=== PATIENT | female | born 1990 | race Caucasian/White ===

== ENCOUNTER 2016-07-05 13:00 | Observation (INO) | payer MEDICAID, OTHER ==
[2016-07-05 13:10] VITALS: BMI 33.3
--- NOTE | 2016-07-05 14:02 | ED PDOC ---
Arrival/HPI - General Chief Complaint: Chest Pain Time Seen by Provider: 07/05/16 13:10 Historian: Patient - History of Present Illness Narrative History of Present Illness (Text): 07/05/16 13:51 A 25 year old female, whose past medical history includes hypertension, hyperlipidemia and angina, presents to the emergency department complaining of midsternal chest pain since this morning. Patient describes her pain as a sharp sensation and denies any radiation. Patient states her pain is similar in quality to previous angina exacerbation. Patient notes nausea and an episode of non-bilious non-bloody vomiting but denies any trauma, fever, chills, diarrhea, abdominal pain, shortness of breath, cough or any other complaints. PMD: Dr. Aparicio Time/Duration: Other (This morning) Symptom Course: Unchanged Quality: Other Context: Other Past Medical History - Provider Review Nursing Documentation Reviewed: Yes - Cardiac Hx Cardiac Disorders: Yes Hx Angina: Yes Hx SD: Yes Hx Hypertension: Yes - Pulmonary Hx Respiratory Disorders: Yes Hx Bronchitis: Yes - Neurological Hx Neurological Disorder: No - HEENT Hx HEENT Disorder: No - Renal Hx Renal Disorder: No - Endocrine/Metabolic Hx Endocrine Disorders: No - Hematological/Oncological Hx Blood Disorders: No - Integumentary Hx Dermatological Disorder: No - Musculoskeletal/Rheumatological Hx Musculoskeletal Disorders: No Hx Falls: No - Gastrointestinal Hx Gastrointestinal Disorders: No - Genitourinary/Gynecological Hx Genitourinary Disorders: No - Psychiatric Hx Anxiety: Yes Hx Substance Use: No - Surgical History Hx Cardiac Catheterization: Yes Hx Section: Yes (x3 2009 2011 2013) - Anesthesia Hx Anesthesia: Yes Hx Anesthesia Reactions: No Hx Malignant Hyperthermia: No - Suicidal Assessment Feels Threatened In Home Enviroment: No Family/Social History - Physician Review Nursing Documentation Reviewed: Yes Family/Social History: No Known Family HX. denies: CAD/SD Smoking Status: Current Some Days Smoker Hx Alcohol Use: No Hx Substance Use: No Allergies/Home Meds Allergies/Adverse Reactions: Allergies No Known Allergies Allergy (Verified 07/05/16 13:35) Home Medications: Home Meds Medication Instructions Recorded Confirmed Labetalol [Trandate] 100 mg PO BID 11/05/13 07/05/16 Zolpidem Tartrate [Ambien] 1 tab PO HS 02/10/15 07/05/16 Duloxetine HCl [Duloxetine HCl] 30 mg PO DAILY 07/05/16 07/05/16 Lisinopril [Zestril] 20 mg PO DAILY 07/05/16 07/05/16 amLODIPine [Norvasc] 10 mg PO DAILY 07/05/16 07/05/16 Review of Systems - Physician Review All systems were reviewed & negative as marked: Yes - Review of Systems Constitutional: absent: Fevers, Night Sweats Respiratory: absent: SOB, Cough Cardiovascular: Chest Pain Gastrointestinal: Nausea, Vomiting. absent: Abdominal Pain, Diarrhea Physical Exam Vital Signs Reviewed: Yes Vital Signs Temp Pulse Resp BP Pulse Ox 07/05/16 13:10 98.1 F 70 18 148/88 100 Temperature: Afebrile Blood Pressure: Normal Pulse: Regular Respiratory Rate: Normal Appearance: Positive for: Well-Appearing, Non-Toxic, Comfortable Pain Distress: None Mental Status: Positive for: Alert and Oriented X 3 - Systems Exam Head: Present: Atraumatic, Normocephalic Pupils: Present: PERRL Extroacular Muscles: Present: EOMI Conjunctiva: Present: Normal Mouth: Present: Moist Mucous Membranes Neck: Present: Normal Range of Motion Respiratory/Chest: Present: Clear to Auscultation, Good Air Exchange. No: Respiratory Distress, Accessory Muscle Use Cardiovascular: Present: Regular Rate and Rhythm, Normal S1, S2. No: Murmurs Abdomen: Present: Normal Bowel Sounds. No: Tenderness, Distention, Peritoneal Signs Back: Present: Normal Inspection Upper Extremity: Present: Normal Inspection. No: Cyanosis, Edema Lower Extremity: Present: Normal Inspection. No: Edema Neurological: Present: GCS=15, CN II-XII Intact, Speech Normal Skin: Present: Warm, Dry, Normal Color. No: Rashes Psychiatric: Present: Alert, Oriented x 3, Normal Insight, Normal Concentration Medical Decision Making ED Course and Treatment: 07/05/16 13:51 Impression: A 25 year old female with midsternal chest pain similar to previous angina exacerbations. Patient notes nausea and an episode of non-bilious non-bloody vomiting but denies any other complaints. Differential Diagnosis included but are not limited to: Chest pain rule out Unstable angina vs. Costochondritis Plan: -- Chest xray -- EKG -- Labs -- Aspirin and Nitroglycerin -- Reassess and disposition Progress Notes: EKG shows NSR at [address]-segment elevations, normal intervals. Interpreted by me. 07/05/16 15:08 Nitro SL did not resolve pain. Will give second. Discussed case with Dr. Fisher who will place on telemetry observatoin. - Lab Interpretations Lab Results: 07/05/16 14:19 07/05/16 14:19 Lab Results 07/05/16 14:19: WBC 5.4, RBC 4.21, Hgb 11.1 L, Hct 33.9 L, MCV 80.5, MCH 26.4, MCHC 32.7, RDW 14.5, Plt Count 229, MPV 11.0, Gran % 50.0, Lymph % (Auto) 39.4 H , Blount % (Auto) 7.6 H, Eos % (Auto) 2.6, Baso % (Auto) 0.4, Gran # 2.70, Lymph # 2.1, Blount # 0.4, Eos # 0.1, Baso # 0.02, PT 10.4, INR 0.96, APTT 26.3, Sodium 136, Potassium 4.2, Chloride 100, Carbon Dioxide 27, Anion Gap 13, BUN 10, Creatinine 0.7, Est GFR ( Amer) > 60, Est GFR (Non-Af Amer) > 60, Random Glucose 93, Calcium 9.7, Magnesium 1.8, Total Bilirubin 0.4, AST 37, ALT 19, Alkaline Phosphatase 44, Lactate Dehydrogenase 428, Total Creatine Kinase 215, Troponin I < 0.01, Total Protein 7.8, Albumin 4.2, Globulin 3.5, Albumin/ Globulin Ratio 1.2 I have reviewed the lab results: Yes Interpretation: All labs normal - RAD Interpretation Radiology Orders: 07/05/16 13:50 CHEST PORTABLE [RAD] Stat CXR nl. Surveillance Investigator: ED Physician - Medication Orders Current Medication Orders: Discontinued Medications Aspirin (Ecotrin) 162 mg PO STAT STA Stop: 07/05/16 13:51 Last Admin: 07/05/16 14:10 Dose: 162 MG Nitroglycerin (Nitrostat Sl Tab) 0.4 mg SL STAT STA Stop: 07/05/16 13:51 Last Admin: 07/05/16 14:13 Dose: 0.4 MG - Scribe Statement The provider has reviewed the documentation as recorded by the Zeeshan Bullard Provider Scribe Attestation: All medical record entries made by the Zeeshan were at my direction and personally dictated by me. I have reviewed the chart and agree that the record accurately reflects my personal performance of the history, physical exam, medical decision making, and the department course for this patient. I have also personally directed, reviewed, and agree with the discharge instructions and disposition. Disposition/Present on Arrival - Present on Arrival Any Indicators Present on Arrival: No History of DVT/PE: No History of Uncontrolled Diabetes: No Urinary Catheter: No History of Decub. Ulcer: No History Surgical Site Infection Following: None - Disposition Have Diagnosis and Disposition been Completed?: Yes Diagnosis: Chest pain Disposition: HOSPITALIZED Disposition Time: 15:09 Patient Plan: Observation Condition: FAIR Discharge Instructions (ExitCare): Chest Pain (ED)
[2016-07-05 14:21] LABS: ADD MANUAL DIFF? NO
[2016-07-05 14:26] LABS: BASO # 0.02 K/mm3 (0.0-2.0); BASO % 0.4 % (0.0-3.0); EOS # 0.1 (0.0-0.7); EOS % 2.6 % (1.5-5.0); HEMATOCRIT 33.9 % (36.0-48.0); LYMPH # 2.1 (1.2-3.4); LYMPH % 39.4 % (22.0-35.0); MEAN CELL VOLUME 80.5 fL (80.0-105.0); MEAN CORPUSCULAR HEMOGLOBIN 26.4 pg (25.0-35.0); MEAN CORPUSCULAR HGB CONC 32.7 g/dl (31.0-37.0); MONO # 0.4 (0.1-0.6); MONO % 7.6 % (1.0-6.0); PLATELET COUNT 229 10^3/uL (120.0-450.0); RED CELL DISTRIBUTION WIDTH 14.5 % (11.5-14.5); WHITE BLOOD COUNT 5.4 10^3/ul (4.5-11.0)
[2016-07-05 14:33] LABS: ALB/GLOB RATIO 1.2 (1.1-1.8); ALKALINE PHOSPHATASE 44 U/L (38-133); ALT/SGPT 19 U/L (7-56); AST/SGOT 37 U/L (15-39); BILIRUBIN,TOTAL 0.4 mg/dL (0.2-1.3); BLOOD UREA NITROGEN 10 mg/dL (7-21); CALCIUM 9.7 mg/dL (8.4-10.5); CARBON DIOXIDE 27 mmol/L (21-33); CHLORIDE 100 mmol/L (98-107); GFR AFRICAN-AMERICAN > 60; GLUCOSE,RANDOM 93 mg/dL (70-110); MAGNESIUM 1.8 mg/dL (1.7-2.2); POTASSIUM 4.2 mmol/L (3.6-5.0); SODIUM 136 mmol/L (132-148); TOTAL PROTEIN 7.8 g/dL (5.8-8.3)
[2016-07-05 14:40] LABS: INR 0.96 (0.93-1.08); PARTIAL THROMBOPLASTIN TIME 26.3 Seconds (23.7-30.8)
[2016-07-05 14:45] LABS: TROPONIN I < 0.01 ng/mL
--- NOTE | 2016-07-05 16:32 | RAD ---
HISTORY: Chest pain. Technique: Single view portable semi erect @ 14:35. COMPARISON: No prior. FINDINGS: LUNGS: No active pulmonary disease. PLEURA: No significant pleural effusion identified, no pneumothorax apparent. CARDIOVASCULAR: Normal. OSSEOUS STRUCTURES: No significant abnormalities. VISUALIZED UPPER ABDOMEN: Normal. OTHER FINDINGS: None. IMPRESSION: No active disease.
--- NOTE | 2016-07-05 16:33 | CP.PCM.HP ---
<Zen Franco - Last Filed: 07/05/16 16:49> History of Present Illness - History of Present Illness History of Present Illness: CC: chest pain HPI: 25 year old female with past medical history of hypertension, depression, and anxiety presents to [facility] ED with chest pain. Patient reports the chest pain is located at midsternal region, it started this morning suddenly. She describes the pain as sharp in quality, it comes and goes , radiates to her jaw. The pain is worse with deep breath and movement. Patient had multiple episodes just like this before, with last one happened about 1 month ago. Patient went [facility] and stated that all the testings were negative. Patient never had a cardiac cath procedure done before. Patient also reports of having 6 episodes of non-bilious non-bloody vomiting. She denies having loss of consciousness, chills, fever, chills, shortness of breath, cough, abdominal pain , diarrhea, or urinary symptoms. PMD: Dr. Aparicio PMHx: hypertension, depression, anxiety PSHx: x3 Allergy: NKDA Social Hx: 1-2 cigarettes daily, social alcohol consumption, denies other drug use Family Hx: none Home Med: norvasc, ambien, lisinopril, duloxetine, asa Present on Admission - Present on Admission Any Indicators Present on Admission: No Review of Systems - Review of Systems All systems: reviewed and no additional remarkable complaints except - Constitutional Constitutional: As Per HPI. absent: Chills, Fever, Weakness - EENT Eyes: As Per HPI. absent: Blurred Vision, Change in Vision, Loss of Vision Ears: As Per HPI. absent: Disequilibrium, Dizziness Nose/Mouth/Throat: As Per HPI. absent: Nasal Discharge, Hoarsness - Cardiovascular Cardiovascular: As Per HPI, Chest Pain, Chest Pain with Activity, Pain Radiating to Arm/Neck/Jaw, Radiating Pain. absent: Edema, Leg Edema - Respiratory Respiratory: As Per HPI. absent: Cough, Dyspnea, Hemoptysis, Wheezing - Gastrointestinal Gastrointestinal: As Per HPI, Nausea, Vomiting. absent: Diarrhea - Genitourinary Genitourinary: As Per HPI. absent: Urinary Incontinence, Urinary Frequency, Urinary Hesitance - Musculoskeletal Musculoskeletal: As Per HPI - Integumentary Integumentary: As Per HPI - Neurological Neurological: As Per HPI. absent: Abnormal Speech, Confusion, Dizziness, Numbness, Syncope - Psychiatric Psychiatric: As Per HPI. absent: Anxiety, Confusion, Visual Hallucinations, Tactile Hallucinations Past Patient History - Past Medical History & Family History Past Medical History?: Yes - Past Social History Smoking Status: Current Some Days Smoker - CARDIAC Hx Cardiac Disorders: Yes Hx Angina: Yes Hx Heart Attack: Yes Hx Hypertension: Yes - PULMONARY Hx Respiratory Disorders: Yes Hx Bronchitis: Yes - NEUROLOGICAL Hx Neurological Disorder: No - HEENT Hx HEENT Problems: No - RENAL Hx Chronic Kidney Disease: No - ENDOCRINE/METABOLIC Hx Endocrine Disorders: No - HEMATOLOGICAL/ONCOLOGICAL Hx Blood Disorders: No - INTEGUMENTARY Hx Dermatological Problems: No - MUSCULOSKELETAL/RHEUMATOLOGICAL Hx Musculoskeletal Disorders: No Hx Falls: No - GASTROINTESTINAL Hx Gastrointestinal Disorders: No - GENITOURINARY/GYNECOLOGICAL Hx Genitourinary Disorders: No - PSYCHIATRIC Hx Anxiety: Yes Hx Substance Use: No - SURGICAL HISTORY Hx Cardiac Catheterization: Yes Hx Section: Yes (x3 2009 2011 2013) - ANESTHESIA Hx Anesthesia: Yes Hx Anesthesia Reactions: No Hx Malignant Hyperthermia: No Meds Allergies/Adverse Reactions: Allergies Allergy/AdvReac Type Severity Reaction Status Date / Time No Known Allergies Allergy Verified 07/05/16 13:35 Physical Exam - Constitutional Appears: Non-toxic - Head Exam Head Exam: ATRAUMATIC, NORMOCEPHALIC - Eye Exam Eye Exam: PERRL - ENT Exam ENT Exam: Mucous Membranes Moist - Neck Exam Neck exam: Positive for: Normal Inspection - Respiratory Exam Respiratory Exam: Clear to Auscultation Bilateral, NORMAL BREATHING PATTERN. absent: Rhonchi, Wheezes, Respiratory Distress - Cardiovascular Exam Cardiovascular Exam: REGULAR RHYTHM, RRR, +S1, +S2 - GI/Abdominal Exam GI & Abdominal Exam: Normal Bowel Sounds, Soft. absent: Distended, Guarding, Tenderness - Extremities Exam Extremities exam: Positive for: normal capillary refill, normal inspection, pedal pulses present. Negative for: joint swelling, pedal edema, tenderness - Back Exam Back exam: NORMAL INSPECTION - Neurological Exam Neurological exam: Alert, Oriented x3 - Psychiatric Exam Psychiatric exam: Normal Affect, Normal Mood - Skin Skin Exam: Dry, Warm Additional comments: multiple keyloid scars on left forearm Results - Vital Signs Recent Vital Signs: Last Vital Signs Temp 98.1 F 07/05/16 13:10 Pulse 64 07/05/16 15:01 Resp 18 07/05/16 15:01 BP 154/86 H 07/05/16 15:01 Pulse Ox 100 07/05/16 15:01 - Labs Result Diagrams: 07/05/16 14:19 07/05/16 14:19 Labs: Laboratory Results - last 24 hr 07/05/16 14:19 WBC 5.4 RBC 4.21 Hgb 11.1 L Hct 33.9 L MCV 80.5 MCH 26.4 MCHC 32.7 RDW 14.5 Plt Count 229 MPV 11.0 Gran % 50.0 Lymph % (Auto) 39.4 H Toombs % (Auto) 7.6 H Eos % (Auto) 2.6 Baso % (Auto) 0.4 Gran # 2.70 Lymph # 2.1 Toombs # 0.4 Eos # 0.1 Baso # 0.02 PT 10.4 INR 0.96 APTT 26.3 Sodium 136 Potassium 4.2 Chloride 100 Carbon Dioxide 27 Anion Gap 13 BUN 10 Creatinine 0.7 Est GFR ( Amer) > 60 Est GFR (Non-Af Amer) > 60 Random Glucose 93 Calcium 9.7 Magnesium 1.8 Total Bilirubin 0.4 AST 37 ALT 19 Alkaline Phosphatase 44 Lactate Dehydrogenase 428 Total Creatine Kinase 215 Troponin I < 0.01 Total Protein 7.8 Albumin 4.2 Globulin 3.5 Albumin/Globulin Ratio 1.2 Assessment & Plan - Assessment and Plan (Free Text) Assessment: Chest pain r/o ACS -EKG showed NSR at [address]-segment elevations -Troponin negative x1, repeats pending -Cardiology consult, Dr. Morales help appreciated -Lipid panel pending -ASA 81mg po -Lipitor 10mg po -Toradol 30mg IV Q6 prn Tobacco abuse -Cessation consulted -Nicotine patch Hypertension -Resume Norvasc 10mg po daily -Resume Lisinopril 20mg po daily Nausea and vomiting -Zofran 4mg iv Q4 prn Prophylactic measures -Protonix for GI ppx -SCD for DVT ppx <Natalia GREGORY,Aurelia - Last Filed: 07/05/16 17:21> Results - Vital Signs Recent Vital Signs: Last Vital Signs Temp 98.1 F 07/05/16 13:10 Pulse 61 07/05/16 17:00 Resp 18 07/05/16 17:00 BP 150/76 07/05/16 17:00 Pulse Ox 100 07/05/16 17:00 - Labs Result Diagrams: 07/05/16 14:19 07/05/16 14:19 Attending/Attestation - Attestation I have personally seen and examined this patient.: Yes I have fully participated in the care of the patient.: Yes I have reviewed all pertinent clinical information: Yes Notes (Text): Patient was seen and examined with medical unit secretary .Agreed with resident assessment and plan. 25 Yrs old female with PMH of Obesity,HTN,Anxiety is admitted with chest pain, atypical in nature, has chest wall tenderness,EKG NSR, no ischemic changes, patient is on room air , not dyspnic, will monitor in tele for observation, will get serial troponin. Management plan was discussed in detail with patient Education was provided.
--- NOTE | 2016-07-05 18:14 | CARD ---
APPROVED REPORT EKG Measurement Heart [id number] NM [id number] <Conclusion> Normal sinus rhythm Normal ECG
[2016-07-05 19:20] LABS: CHOLESTEROL 172 mg/dL (130-200)
[2016-07-05 22:20] LABS: TROPONIN I < 0.01 ng/mL
[2016-07-06 03:19] VITALS: RESP 20
[2016-07-06] MEDS ORDERED: Pantoprazole 40 mg EC Tab PO SCH (06:30)
[2016-07-06 07:39] LABS: ADD MANUAL DIFF? NO
[2016-07-06 07:47] LABS: BASO # 0.02 K/mm3 (0.0-2.0); BASO % 0.5 % (0.0-3.0); EOS # 0.1 (0.0-0.7); EOS % 3.4 % (1.5-5.0); GRAN # 1.95 (1.4-6.5); LYMPH # 1.6 (1.2-3.4); LYMPH % 38.7 % (22.0-35.0); MEAN CELL VOLUME 80.2 fL (80.0-105.0); MEAN CORPUSCULAR HEMOGLOBIN 25.9 pg (25.0-35.0); MEAN CORPUSCULAR HGB CONC 32.4 g/dl (31.0-37.0); MEAN PLATELET VOLUME 11.2 fl (7.0-11.0); MONO # 0.4 (0.1-0.6); MONO % 9.4 % (1.0-6.0); PLATELET COUNT 227 10^3/uL (120.0-450.0); RED CELL DISTRIBUTION WIDTH 14.8 % (11.5-14.5); WHITE BLOOD COUNT 4.1 10^3/ul (4.5-11.0)
[2016-07-06 08:14] LABS: BLOOD UREA NITROGEN 11 mg/dL (7-21); CALCIUM 9.2 mg/dL (8.4-10.5); CARBON DIOXIDE 25 mmol/L (21-33); CHLORIDE 102 mmol/L (98-107); GFR AFRICAN-AMERICAN > 60; GLUCOSE,RANDOM 87 mg/dL (70-110); POTASSIUM 4.3 mmol/L (3.6-5.0); SODIUM 137 mmol/L (132-148)
[2016-07-06 08:17] LABS: TROPONIN I < 0.01 ng/mL
[2016-07-06 08:32] VITALS: BP 126/78; PULSE 68; TEMP 98; O2SAT 98
--- NOTE | 2016-07-06 10:38 | CON ---
DATE: 07/06/2016 HISTORY: The patient is a 25-year-old woman who presents with focal chest discomfort, which is exace rbated by deep inspiration as well as movement of the upper chest. The patient has had this chronic pain for a long time. She is followed by her mold inspector, Dr. Meza , at [facility]. The patient states she underwent a stress test 1-2 months ago for s imilar symptoms with Dr. Meza and it was found to be unremarkable. PAST MEDICAL HISTORY: The patient's cardiac risk factors include hypertension and history of smoking . No previous myocardial infarction was noted. SOCIAL HISTORY: The patient is an active smoker and works locally in [place]. REVIEW OF SYSTEMS: A 14-point review of systems was reviewed. She complains of fatigue as well as t his chronic focal chest pain. PHYSICAL EXAMINATION: VITAL SIGNS: Blood pressure is 126/78, heart rate in the 60s, normal sinus rhythm. NECK: Negative JVD. LUNGS: Without rales. HEART: Revealed S1, S2. EXTREMITIES: Without edema. CHEST: Palpation of her sternum reproduced the symptoms in the chest in the parasternal area. EKG is unremarkable. LABORATORIES: Reveal troponins that are negative x 3. The hemoglobin is 11. IMPRESSION: 1. Atypical chest pain. 2. No evidence for acute coronary syndrome. 3. Chronic chest wall pain exacerbated by increased inspiration. 4. Hypertension. 5. Questionable chronic obstructive pulmonary disease with a history of smoking 6. Anemia. PLAN: Given these findings, I have discussed with the patient about the need to stop smoking. I have advised her to follow up with Dr. Meza, her primary mold inspector, who has been evaluating her for this chronic chest pain. We will set the patient up given her an alternative to undergo a repeat nuclear stress test to rule out coronary artery disease. Darryn Morales MD cc: [phone] TT: 07/06/2016 10:37:17 Confirmation # [id number] Dictation # [id number]
--- NOTE | 2016-07-06 11:58 | CP.PCM.DIS ---
Provider - Provider Date of Admission: 07/05/16 15:05 Attending physician: Aurelia Fisher MD Primary care physician: Tru Aparicio Consults: Cardiology: Dr. Morales Time Spent in preparation of Discharge (in minutes): 40 Hospital Course - Lab Results Lab Results: Most Recent Lab Values WBC 4.1 10^3/ul (4.5-11.0) L D 07/06/16 07:00 RBC 4.24 10^6/uL (3.5-6.1) 07/06/16 07:00 Hgb 11.0 gm/dL (12.0-16.0) L 07/06/16 07:00 Hct 34.0 % (36.0-48.0) L 07/06/16 07:00 MCV 80.2 fL (80.0-105.0) 07/06/16 07:00 MCH 25.9 pg (25.0-35.0) 07/06/16 07:00 MCHC 32.4 g/dl (31.0-37.0) 07/06/16 07:00 RDW 14.8 % (11.5-14.5) H 07/06/16 07:00 Plt Count 227 10^3/uL (120.0-450.0) 07/06/16 07:00 MPV 11.2 fl (7.0-11.0) H 07/06/16 07:00 Gran % 48.0 % (50.0-68.0) L 07/06/16 07:00 Lymph % (Auto) 38.7 % (22.0-35.0) H 07/06/16 07:00 Andrews % (Auto) 9.4 % (1.0-6.0) H 07/06/16 07:00 Eos % (Auto) 3.4 % (1.5-5.0) 07/06/16 07:00 Baso % (Auto) 0.5 % (0.0-3.0) 07/06/16 07:00 Gran # 1.95 (1.4-6.5) 07/06/16 07:00 Lymph # 1.6 (1.2-3.4) 07/06/16 07:00 Andrews # 0.4 (0.1-0.6) 07/06/16 07:00 Eos # 0.1 (0.0-0.7) 07/06/16 07:00 Baso # 0.02 K/mm3 (0.0-2.0) 07/06/16 07:00 PT 10.4 Seconds (9.9-11.8) 07/05/16 14:19 INR 0.96 (0.93-1.08) 07/05/16 14:19 APTT 26.3 Seconds (23.7-30.8) 07/05/16 14:19 Sodium 137 mmol/L (132-148) 07/06/16 07:00 Potassium 4.3 mmol/L (3.6-5.0) 07/06/16 07:00 Chloride 102 mmol/L (98-107) 07/06/16 07:00 Carbon Dioxide 25 mmol/L (21-33) 07/06/16 07:00 Anion Gap 14 (10-20) 07/06/16 07:00 BUN 11 mg/dL (7-21) 07/06/16 07:00 Creatinine 0.7 mg/dL (0.5-1.4) 07/06/16 07:00 Est GFR ( Amer) > 60 07/06/16 07:00 Est GFR (Non-Af Amer) > 60 07/06/16 07:00 Random Glucose 87 mg/dL (70-110) 07/06/16 07:00 Calcium 9.2 mg/dL (8.4-10.5) 07/06/16 07:00 Magnesium 1.8 mg/dL (1.7-2.2) 07/05/16 14:19 Total Bilirubin 0.4 mg/dL (0.2-1.3) 07/05/16 14:19 AST 37 U/L (15-39) 07/05/16 14:19 ALT 19 U/L (7-56) 07/05/16 14:19 Alkaline Phosphatase 44 U/L (38-133) 07/05/16 14:19 Lactate Dehydrogenase 380 U/L (333-699) 07/06/16 07:00 Total Creatine Kinase 146 U/L (35-230) 07/06/16 07:00 Troponin I < 0.01 ng/mL 07/06/16 07:00 Total Protein 7.8 g/dL (5.8-8.3) 07/05/16 14:19 Albumin 4.2 g/dL (3.0-4.8) 07/05/16 14:19 Globulin 3.5 gm/dL 07/05/16 14:19 Albumin/Globulin Ratio 1.2 (1.1-1.8) 07/05/16 14:19 Triglycerides 56 mg/dL (35-160) 07/05/16 14:19 Cholesterol 172 mg/dL (130-200) 07/05/16 14:19 LDL Cholesterol Direct 101 mg/dL (0-129) 07/05/16 14:19 HDL Cholesterol 45 mg/dL (29-60) 07/05/16 14:19 Discharge Exam - Head Exam Head Exam: ATRAUMATIC, NORMOCEPHALIC Discharge Plan - Discharge Medications Prescriptions: Nicotine 7 mg/24 hr [Nicoderm CQ] 1 patch TD DAILY #14 patch - Follow Up Plan Condition: FAIR Disposition: HOME/ ROUTINE Instructions: Chest Pain (DC) Additional Instructions: -Patient was instructed to follow up with PMD Dr. Aparicio within 1 week of hospital discharge -Patient was instructed to follow up with her primary production engineer for a stress test -Patient will take medication as prescribed -Smoking cessation was strongly advised -Go to the nearest ED if symptoms return or worsen Referrals: Tru Aparicio MD [Primary Care Provider] - Jenni Meza MD [Staff Provider] -
== END 2016-07-06 13:04 | disposition home or self-care (01) ==
LOC: ED 13:00 → ERH 15:05 → 3RSO 17:56
PROVIDERS: ADMIT Internal Medicine; ATTEND Internal Medicine
DX: R07.89 Other chest pain (principal); I10 Essential (primary) hypertension; E78.5 Hyperlipidemia, unspecified; G89.29 Other chronic pain; F17.210 Nicotine dependence, cigarettes, uncomplicated; D64.9 Anemia, unspecified; F32.9 Major depressive disorder, single episode, unspecified; R11.2 Nausea with vomiting, unspecified; F41.9 Anxiety disorder, unspecified; E66.9 Obesity, unspecified
CPT/HCPCS: 36415; 71010; 80048; 80053; 80061; 82550; 83615; 83735; 84484; 85025; 85610; 85730; 93005; 99285; G0378; J1885

== ENCOUNTER 2016-08-25 18:25 | Emergency (ER) | payer MEDICAID ==
[2016-08-25 19:21] VITALS: BMI 39.2
--- NOTE | 2016-08-25 19:21 | ED PDOC ---
Arrival/HPI - General Time Seen by Provider: 08/25/16 19:15 Historian: Patient - History of Present Illness Narrative History of Present Illness (Text): 08/25/16 19:15 25 y/o female, pmh including htn/angina/hyperlipidemia, nkda, c/o lower back pain radiating to the rt. lower extremity x 2 hours with no fall or trauma. 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 Past Medical History - Provider Review Nursing Documentation Reviewed: Yes - Cardiac Hx Cardiac Disorders: Yes Hx Angina: Yes Hx Hypertension: Yes - Pulmonary Hx Respiratory Disorders: Yes Hx Bronchitis: Yes - Neurological Hx Neurological Disorder: No - HEENT Hx HEENT Disorder: No - Renal Hx Renal Disorder: No - Endocrine/Metabolic Hx Endocrine Disorders: No - Hematological/Oncological Hx Blood Disorders: No - Integumentary Hx Dermatological Disorder: No - Musculoskeletal/Rheumatological Hx Musculoskeletal Disorders: No Hx Falls: No - Gastrointestinal Hx Gastrointestinal Disorders: No - Genitourinary/Gynecological Hx Genitourinary Disorders: No - Psychiatric Hx Anxiety: Yes Hx Substance Use: No - Surgical History Hx Cardiac Catheterization: Yes - Anesthesia Hx Anesthesia: Yes Hx Anesthesia Reactions: No Hx Malignant Hyperthermia: No - Suicidal Assessment Feels Threatened In Home Enviroment: No Family/Social History - Physician Review Nursing Documentation Reviewed: Yes Family/Social History: Unknown Family HX Smoking Status: Current Some Days Smoker Hx Alcohol Use: No Hx Substance Use: No Allergies/Home Meds Allergies/Adverse Reactions: Allergies azithromycin Allergy (Verified 08/25/16 19:45) ITCHING Home Medications: Home Meds Medication Instructions Recorded Confirmed Labetalol [Trandate] 100 mg PO BID 11/05/13 07/05/16 Zolpidem Tartrate [Ambien] 1 tab PO HS 02/10/15 07/05/16 Duloxetine HCl 30 mg PO DAILY 07/05/16 07/05/16 amLODIPine [Norvasc] 10 mg PO DAILY 07/05/16 07/05/16 Review of Systems - Review of Systems Constitutional: absent: Fatigue, Fevers Eyes: absent: Vision Changes ENT: absent: Hearing Changes Respiratory: absent: SOB, Cough, Sputum Cardiovascular: absent: Chest Pain Gastrointestinal: absent: Abdominal Pain, Diarrhea, Nausea, Vomiting Musculoskeletal: Back Pain, Myalgias. absent: Arthralgias, Neck Pain, Joint Swelling Skin: absent: Rash, Pruritis, Skin Lesions, Laceration, Abscess, Ulcer, Cellulitis Neurological: absent: Headache Psychiatric: absent: Anxiety, Depression, Suicidal Ideation Physical Exam Vital Signs Reviewed: Yes Vital Signs Temp Pulse Resp BP Pulse Ox 08/25/16 19:20 98.3 F 76 18 154/100 H 99 Temperature: Afebrile Blood Pressure: Normal Pulse: Regular Respiratory Rate: Normal Appearance: Positive for: Well-Appearing, Non-Toxic, Comfortable Pain Distress: Moderate Mental Status: Positive for: Alert and Oriented X 3 - Systems Exam Head: Present: Atraumatic, Normocephalic Pupils: Present: PERRL Extroacular Muscles: Present: EOMI Conjunctiva: Present: Normal Mouth: Present: Moist Mucous Membranes Neck: Present: Normal Range of Motion, Trachea Midline. No: Meningeal Signs, MIDLINE TENDERNESS, Paraspinal Tenderness, Lymphadenopathy Respiratory/Chest: Present: Clear to Auscultation, Good Air Exchange. No: Respiratory Distress, Accessory Muscle Use Cardiovascular: Present: Regular Rate and Rhythm, Normal S1, S2. No: Murmurs Abdomen: Present: Normal Bowel Sounds. No: Tenderness, Distention, Peritoneal Signs Back: Present: Normal Inspection, Other (Thoracic to LS spine: no midline tenderness or step off, no paraspinal muscle tenderness, no cva tenderness, FROM without limitation, sensation intact, motor 5/5. ). No: Midline Tenderness , Pain with Leg Raise, Decubitus Ulcer Upper Extremity: Present: Normal Inspection. No: Cyanosis, Edema Lower Extremity: Present: Normal Inspection. No: Edema Neurological: Present: GCS=15, Speech Normal, Motor Func Grossly Intact, Gait Normal, Memory Normal Skin: Present: Warm, Dry, Normal Color. No: Rashes Psychiatric: Present: Alert, Oriented x 3, Normal Insight, Normal Concentration Medical Decision Making ED Course and Treatment: 08/25/16 19:24 -there is no indication of emergent labs or radiology studies indicated at this time. -toradol IM/lidoderm -cane -Discharge home with mobic, flexeril, lidoderm patch, cane, heat compression, follow up with your own pmd within 2 days, return to the ER for any new or worsening signs or symptoms. - Medication Orders Current Medication Orders: Lidocaine (Lidoderm) 1 ea TD DAILY JAIMEE Discontinued Medications Clonidine HCl (Catapres) 0.1 mg PO STAT STA Stop: 08/25/16 19:34 Ketorolac Tromethamine (Toradol) 60 mg IM STAT STA Stop: 08/25/16 19:23 - PA / STAND GRINDER / Resident Statement MD/ has reviewed & agrees with the documentation as recorded. Disposition/Present on Arrival - Present on Arrival Any Indicators Present on Arrival: No History of DVT/PE: No History of Uncontrolled Diabetes: No Urinary Catheter: No History of Decub. Ulcer: No History Surgical Site Infection Following: None - Disposition Have Diagnosis and Disposition been Completed?: Yes Diagnosis: Radicular pain of right lower back Disposition: HOME/ ROUTINE Disposition Time: 19:30 Patient Plan: Discharge Patient Problems: Current Active Problems Problem Status Onset Radicular pain of right lower back Acute Condition: IMPROVED Additional Instructions: Discharge home with mobic, flexeril, lidoderm patch, cane, heat compression, follow up with your own pmd within 2 days, return to the ER for any new or worsening signs or symptoms. Prescriptions: Cyclobenzaprine [Cyclobenzaprine HCl] 10 mg PO TID PRN #21 tab PRN Reason: Other Lidocaine 5% [Lidoderm] 1 patch TOP DAILY PRN #10 patch PRN Reason: Other Meloxicam [Mobic] 15 mg PO DAILY PRN #14 tab PRN Reason: Other Referrals: Tru Aparicio MD [Primary Care Provider] - Follow up with primary Forms: WORK NOTE
[2016-08-25 19:32] VITALS: PULSE 76; RESP 18; TEMP 98.3; O2SAT 99
[2016-08-25 20:07] VITALS: BP 154/99
[2016-08-25] MEDS ORDERED: Lidocaine 5% Patch TD STA (20:22)
[2016-08-26] MEDS ORDERED: Lidocaine 5% Patch TD SCH (10:00)
== END 2016-08-25 21:00 | disposition home or self-care (01) ==
LOC: ED 18:25
DX: M54.5 Low back pain (principal); I10 Essential (primary) hypertension; E78.5 Hyperlipidemia, unspecified
CPT/HCPCS: 96372; 99283; J1885

== ENCOUNTER 2017-07-31 19:15 | Observation (INO) | payer MEDICAID, OTHER ==
--- NOTE | 2017-07-31 20:08 | ED PDOC ---
Arrival/HPI - General Time Seen by Provider: 07/31/17 19:35 - History of Present Illness Narrative History of Present Illness (Text): 26 year old F c Past medical history hypertension p/w chest pain x approximately 10 hours. Patient describes pain as midchest, radiates to L shoulder with radiating pain down L arm, associated with mild shortness of breath, dizziness, and nausea. She states she was told she has angina in the past and states she had a stress test which showed some "small blockages but it was ok." She denies trauma, dysuria, hemoptysis, asymmetrical leg swelling. Past Medical History - Cardiac Hx Cardiac Disorders: Yes Hx Angina: Yes Hx Hypertension: Yes - Pulmonary Hx Respiratory Disorders: Yes Hx Bronchitis: Yes - Neurological Hx Neurological Disorder: No - HEENT Hx HEENT Disorder: No - Renal Hx Renal Disorder: No - Endocrine/Metabolic Hx Endocrine Disorders: No - Hematological/Oncological Hx Blood Disorders: No - Integumentary Hx Dermatological Disorder: No - Musculoskeletal/Rheumatological Hx Musculoskeletal Disorders: No Hx Falls: No - Gastrointestinal Hx Gastrointestinal Disorders: No - Genitourinary/Gynecological Hx Genitourinary Disorders: No - Psychiatric Hx Anxiety: Yes Hx Substance Use: No - Surgical History Hx Cardiac Catheterization: Yes - Anesthesia Hx Anesthesia: Yes Hx Anesthesia Reactions: No Hx Malignant Hyperthermia: No - Suicidal Assessment Feels Threatened In Home Enviroment: No Family/Social History Family/Social History: No Known Family HX Smoking Status: Current Some Days Smoker Hx Alcohol Use: No Hx Substance Use: No Allergies/Home Meds Allergies/Adverse Reactions: Allergies azithromycin Allergy (Verified 08/25/16 19:45) ITCHING Home Medications: Home Meds Medication Instructions Recorded Confirmed Labetalol [Trandate] 100 mg PO BID 11/05/13 07/05/16 Alprazolam [Xanax] 0.5 mg PO BID 12/27/14 12/27/14 Alprazolam [Xanax] 1 mg PO DAILY 12/27/14 12/27/14 Aspirin [Aspirin EC] 81 mg PO DAILY 12/27/14 12/27/14 Atorvastatin [Lipitor] 40 mg PO DAILY 12/27/14 12/27/14 DULoxetine [Cymbalta] 30 mg PO DAILY 12/27/14 12/27/14 Omeprazole 40 mg PO DAILY 12/27/14 12/27/14 Verapamil [Verapamil HCl] 40 mg PO DAILY 12/27/14 12/27/14 Zolpidem Tartrate [Zolpidem] 10 mg PO HS 12/27/14 12/27/14 Zolpidem Tartrate [Ambien] 1 tab PO HS 02/10/15 07/05/16 Duloxetine HCl 30 mg PO DAILY 07/05/16 07/05/16 amLODIPine [Norvasc] 10 mg PO DAILY 07/05/16 07/05/16 Review of Systems - Physician Review All systems were reviewed & negative as marked: Yes - Review of Systems Constitutional: absent: Fevers Gastrointestinal: absent: Vomiting Physical Exam - Physical Exam Narrative Physical Exam (Text): Gen: NAD Head: NC Eyes: No scleral icterus ENT: MMM Neck: Supple Chest: Reproducible tenderness CV: Regular rate Lungs: CTA b/l Abd: Soft, NT Back: L CVA tenderness Skin: no rash Extremities: No asymmetrical leg edema. Tenderness over L trapezius Neuro: Alert Vital Signs Temp Pulse Resp BP Pulse Ox 07/31/17 19:15 98.3 F 71 18 144/97 H 99 Medical Decision Making ED Course and Treatment: Patient with probably costochondritis and cervical radiculopathy but with concerning history, will rule out ACS. Chest X-ray no consolidation EKG NSR 76 bpm, no ST/T wave changes. - Lab Interpretations Lab Results: 07/31/17 20:50 07/31/17 20:50 Lab Results 07/31/17 20:50: Sodium 141, Potassium 3.8, Chloride 102, Carbon Dioxide 26, Anion Gap 17, BUN 7, Creatinine 0.6 L, Est GFR ( Amer) > 60, Est GFR (Non -Af Amer) > 60, Random Glucose 90, Calcium 10.0, Total Bilirubin 0.4, AST 27, ALT 20, Alkaline Phosphatase 54, Total Creatine Kinase 151, Troponin I < 0.01, Total Protein 8.1, Albumin 4.6, Globulin 3.6, Albumin/Globulin Ratio 1.3 07/31/17 20:50: WBC 5.1 D, RBC 4.81, Hgb 11.5 L, Hct 36.3, MCV 75.5 L, MCH 23.9 L, MCHC 31.7, RDW 15.8 H, Plt Count 330, MPV 10.4, Gran % 50.9, Lymph % ( Auto) 38.6 H, [place] % (Auto) 8.3 H, Eos % (Auto) 2.0, Baso % (Auto) 0.2, Gran # 2.57, Lymph # (Auto) 2.0, [place] # (Auto) 0.4, Eos # (Auto) 0.1, Baso # (Auto) 0.01 - RAD Interpretation Radiology Orders: 07/31/17 20:01 CHEST PORTABLE [RAD] Stat - Medication Orders Current Medication Orders: Discontinued Medications Aspirin (Aspirin) 325 mg PO STAT STA Stop: 07/31/17 20:03 Last Admin: 07/31/17 20:20 Dose: 325 mg Ketorolac Tromethamine (Toradol) 30 mg IVP STAT STA Stop: 07/31/17 22:05 Disposition/Present on Arrival - Present on Arrival Any Indicators Present on Arrival: No History of DVT/PE: No History of Uncontrolled Diabetes: No Urinary Catheter: No History Surgical Site Infection Following: None - Disposition Have Diagnosis and Disposition been Completed?: Yes Diagnosis: Chest pain Disposition: HOSPITALIZED Disposition Time: 22:15 Patient Plan: Observation, Telemetry Condition: FAIR Discharge Instructions (ExitCare): Chest Pain (ED) Referrals: Brant Aparicio MD [Primary Care Provider] - Follow up with primary
[2017-07-31 21:11] LABS: BASO # 0.01 K/mm3 (0.0-2.0); BASO % 0.2 % (0.0-3.0); EOS # 0.1 (0.0-0.7); GRAN # 2.57 (1.4-6.5); GRAN % 50.9 % (50.0-68.0); HEMOGLOBIN 11.5 g/dL (12.0-16.0); LYMPH % 38.6 % (22.0-35.0); MEAN CELL VOLUME 75.5 fl (80.0-105.0); MEAN CORPUSCULAR HEMOGLOBIN 23.9 pg (25.0-35.0); MEAN CORPUSCULAR HGB CONC 31.7 g/dl (31.0-37.0); MEAN PLATELET VOLUME 10.4 fl (7.0-11.0); MONO # 0.4 (0.1-0.6); MONO % 8.3 % (1.0-6.0); RBC 4.81 10^6/uL (3.5-6.1); RED CELL DISTRIBUTION WIDTH 15.8 % (11.5-14.5); WHITE BLOOD COUNT 5.1 10^3/ul (4.5-11.0)
[2017-07-31 21:20] LABS: ALB/GLOB RATIO 1.3 (1.1-1.8); ALBUMIN 4.6 g/dL (3.0-4.8); ALT/SGPT 20 U/L (7-56); AST/SGOT 27 U/L (14-36); BLOOD UREA NITROGEN 7 mg/dL (7-21); GFR AFRICAN-AMERICAN > 60; GFR NON-AFRICAN AMERICAN > 60
[2017-07-31 21:30] LABS: TROPONIN I < 0.01 ng/mL
--- NOTE | 2017-07-31 22:56 | CP.PCM.HP ---
History of Present Illness - History of Present Illness History of Present Illness: Karine Villaseñor, PGY1, H&P for Dr Oakes: CC: chest pain 26 year old female with PMH HTN, angina, depression, anxiety, COPD, presents for left sided chest pain that started this afternoon. Pt states that she woke up after a nap, then started feeling left sided chest pain, pressure like. Denies associated diaphoresis, n/v, sob, epigastric pain, dizziness, syncope. Pt reports associated left sided arm pain, but that has been ongoing for past few months, attributes it coming from neck pain. Pt had a stress test [address] Meza, which was negative. Pt also had a normal echocardiogram a month ago. Pt also reports a cardiac cath done at [facility] [place] 2-3 years ago, with no stent placement. In ED, pt's vitals stable. trop neg x1. EKG showed NSR with ST/T wave abnormalities. Given ASA 325 and toradol. + reproducible cp on physical exam. Pt further denies fever, chills, headache, cough, abdominal pain, diarrhea, constipation, urinary symptoms, leg swelling, orthopnea. 12 point ROS obtained and negative, except as per HPI. Cardio: Derrick PMD: Dr. Aparicio PMHx: hypertension, angina, depression, anxiety, COPD, sciatica, insomnia PSHx: x3, cardiac cath (3 years ago at [facility] [place] - neg) Allergy: azithromyin - itchiness Social Hx: 1-2 cigarettes years, social alcohol consumption, denies other drug use. Lives with mother, brother. Family Hx: denies cardiac history Home Med: See MAR Present on Admission - Present on Admission Any Indicators Present on Admission: No History of DVT/PE: No History of Uncontrolled Diabetes: No Urinary Catheter: No Decubitus Ulcer Present: No Review of Systems - Review of Systems All systems: reviewed and no additional remarkable complaints except Review of Systems: as per HPI Past Patient History - Past Medical History & Family History Past Medical History?: Yes - Past Social History Smoking Status: Current Some Days Smoker - CARDIAC Hx Cardiac Disorders: Yes Hx Angina: Yes Hx Hypertension: Yes - PULMONARY Hx Respiratory Disorders: Yes Hx Bronchitis: Yes - NEUROLOGICAL Hx Neurological Disorder: No - HEENT Hx HEENT Problems: No - RENAL Hx Chronic Kidney Disease: No - ENDOCRINE/METABOLIC Hx Endocrine Disorders: No - HEMATOLOGICAL/ONCOLOGICAL Hx Blood Disorders: No - INTEGUMENTARY Hx Dermatological Problems: No - MUSCULOSKELETAL/RHEUMATOLOGICAL Hx Musculoskeletal Disorders: No Hx Falls: No - GASTROINTESTINAL Hx Gastrointestinal Disorders: No - GENITOURINARY/GYNECOLOGICAL Hx Genitourinary Disorders: No - PSYCHIATRIC Hx Anxiety: Yes Hx Substance Use: No - SURGICAL HISTORY Hx Cardiac Catheterization: Yes - ANESTHESIA Hx Anesthesia: Yes Hx Anesthesia Reactions: No Hx Malignant Hyperthermia: No Meds Allergies/Adverse Reactions: Allergies Allergy/AdvReac Type Severity Reaction Status Date / Time azithromycin Allergy ITCHING Verified 08/25/16 19:45 Physical Exam - Constitutional Appears: Non-toxic, No Acute Distress - Head Exam Head Exam: ATRAUMATIC, NORMOCEPHALIC - Eye Exam Eye Exam: EOMI, PERRL. absent: Conjunctival injection, Nystagmus, Periorbital tenderness, Scleral icterus Pupil Exam: NORMAL ACCOMODATION, PERRL. absent: Irregular, Miosis, Mydriatic, Unequal - ENT Exam ENT Exam: Mucous Membranes Moist - Neck Exam Neck exam: Positive for: Full Rom, Tenderness Additional comments: + neck flexion produces left sided arm pain - Respiratory Exam Respiratory Exam: Chest Wall Tenderness (TTP on left sided chest and left arm), Clear to Auscultation Bilateral, NORMAL BREATHING PATTERN. absent: Accessory Muscle Use, Rales, Rhonchi, Wheezes, Stridor - Cardiovascular Exam Cardiovascular Exam: RRR, +S1, +S2. absent: Clicks, Gallop, JVD, Systolic Murmur - GI/Abdominal Exam GI & Abdominal Exam: Normal Bowel Sounds, Soft. absent: Distended, Firm, Guarding, Mass, Organomegaly, Rebound, Rigid, Tenderness - Extremities Exam Extremities exam: Positive for: normal inspection. Negative for: calf tenderness, joint swelling, pedal edema - Back Exam Back exam: NORMAL INSPECTION. absent: CVA tenderness (L), CVA tenderness (R) - Neurological Exam Neurological exam: Alert, CN II-XII Intact, Oriented x3, Reflexes Normal - Psychiatric Exam Psychiatric exam: Normal Affect, Normal Mood - Skin Skin Exam: Dry, Normal Color, Warm Results - Vital Signs Recent Vital Signs: Last Vital Signs Temp 98.3 F 07/31/17 19:15 Pulse 71 07/31/17 19:15 Resp 18 04/16/18 19:15 BP 144/97 H 07/31/17 19:15 Pulse Ox 99 07/31/17 19:15 - Labs Result Diagrams: 08/01/17 03:06 08/01/17 03:06 Labs: Laboratory Results - last 24 hr 07/31/17 07/31/17 20:50 20:50 WBC 5.1 D RBC 4.81 Hgb 11.5 L Hct 36.3 MCV 75.5 L MCH 23.9 L MCHC 31.7 RDW 15.8 H Plt Count 330 MPV 10.4 Gran % 50.9 Lymph % (Auto) 38.6 H [place] % (Auto) 8.3 H Eos % (Auto) 2.0 Baso % (Auto) 0.2 Gran # 2.57 Lymph # (Auto) 2.0 [place] # (Auto) 0.4 Eos # (Auto) 0.1 Baso # (Auto) 0.01 Sodium 141 Potassium 3.8 Chloride 102 Carbon Dioxide 26 Anion Gap 17 BUN 7 Creatinine 0.6 L Est GFR ( Amer) > 60 Est GFR (Non-Af Amer) > 60 Random Glucose 90 Calcium 10.0 Total Bilirubin 0.4 AST 27 ALT 20 Alkaline Phosphatase 54 Total Creatine Kinase 151 Troponin I < 0.01 Total Protein 8.1 Albumin 4.6 Globulin 3.6 Albumin/Globulin Ratio 1.3 Assessment & Plan - Assessment and Plan (Free Text) Assessment: 26 year old female with PMH angina, HTN, depression, anxiety, recent negative stress test 2 months ago, presents for reproducible cp: Chest pain r/o ACS: likely costochondritis/reproducible -EKG showed NSR at [address]-segment elevations/T wave inversions. -CXR: mild cardiomegaly. official read pend. -Obtain echo/stress test results from Dr Meza in AM -Troponin negative x1, serial trops and EKG in AM -TSH, lipid panel, hgbA1c -home ASA 81mg daily and Lipitor 40mg po -naproxen Hx of Tobacco abuse: -Cessation advised -Nicotine patch Hx of Hypertension: -Resume home Norvasc 10mg and labetalol. Hold parameters in place -Cont to monitor Hx of COPD: - duoneb prn Hx of Depression/insomnia/anxiety: -resume home cymbalta, ambien, xanax Prophylactic measures -Protonix for GI ppx -SCD for DVT ppx Discussed with Dr Oakes. - Date & Time Date: 07/31/17 Time: 22:58
[2017-08-01 00:03] VITALS: BMI 41.0
[2017-08-01 00:36] LABS: URINE BILIRUBIN NEGATIVE (NEGATIVE); URINE BLOOD TRACE-INTACT (NEGATIVE); URINE GLUCOSE (UA) NEGATIVE (NEGATIVE); URINE LEUKOCYTE ESTERASE NEGATIVE Leu/uL (NEGATIVE); URINE PROTEIN NEGATIVE mg/dL (<30 mg/dL); URINE UROBILINOGEN 0.2 E.U./dL (<1 E.U./dL)
[2017-08-01 00:39] LABS: URINE APPEARANCE CLEAR (CLEAR); URINE COLOR YELLOW (YELLOW)
[2017-08-01 00:40] LABS: HCG,QUALITATIVE URINE NEGATIVE (NEGATIVE)
[2017-08-01 00:44] LABS: URINE EPITHELIAL CELLS 0 - 2 /hpf (0-5); URINE RBC 0 - 2 /hpf (0-2); URINE WBC 0 - 2 /hpf (0-6)
[2017-08-01] MEDS ORDERED: Naproxen 550 mg Tab PO STA (01:39)
[2017-08-01 01:52] LABS: HDL CHOLESTEROL 46 mg/dL (29-60)
[2017-08-01 02:03] LABS: LDL CHOLESTEROL 120 mg/dL (0-129)
[2017-08-01] MEDS: Albuterol-Ipratrop 3 mg / 0.5 (3 ml) UD IH SCH ×4 (02:45→20:27)
[2017-08-01 03:18] LABS: BASO # 0.01 K/mm3 (0.0-2.0); BASO % 0.2 % (0.0-3.0); EOS # 0.1 (0.0-0.7); EOS % 2.3 % (1.5-5.0); GRAN # 2.64 (1.4-6.5); GRAN % 49.8 % (50.0-68.0); HEMOGLOBIN 10.8 g/dL (12.0-16.0); LYMPH # 2.1 (1.2-3.4); LYMPH % 39.8 % (22.0-35.0); MEAN CELL VOLUME 75.3 fl (80.0-105.0); MEAN CORPUSCULAR HEMOGLOBIN 24.1 pg (25.0-35.0); MONO # 0.4 (0.1-0.6); MONO % 7.9 % (1.0-6.0); RBC 4.49 10^6/uL (3.5-6.1); RED CELL DISTRIBUTION WIDTH 15.9 % (11.5-14.5); WHITE BLOOD COUNT 5.3 10^3/ul (4.5-11.0)
[2017-08-01 03:38] LABS: TROPONIN I < 0.01 ng/mL
[2017-08-01 04:05] LABS: ALB/GLOB RATIO 1.3 (1.1-1.8); ALBUMIN 4.3 g/dL (3.0-4.8); ALT/SGPT 24 U/L (7-56); AST/SGOT 24 U/L (14-36); BLOOD UREA NITROGEN 11 mg/dL (7-21); CALCIUM 9.7 mg/dL (8.4-10.5); GFR AFRICAN-AMERICAN > 60; GFR NON-AFRICAN AMERICAN > 60
[2017-08-01] MEDS: Pantoprazole 40 mg EC Tab PO SCH (04:59)
--- NOTE | 2017-08-01 07:54 | RAD ---
HISTORY: CP COMPARISON: Comparison chest 07/05/2017 FINDINGS: LUNGS: Poor inspiration with low lung volumes, crowded bronchovascular markings and mild bibasilar atelectasis PLEURA: No significant pleural effusion identified, no pneumothorax apparent. CARDIOVASCULAR: Mild cardiomegaly. OSSEOUS STRUCTURES: No significant abnormalities. VISUALIZED UPPER ABDOMEN: Normal. OTHER FINDINGS: None. IMPRESSION: Poor inspiration with low lung volumes, crowded bronchovascular markings and mild bibasilar atelectasis
[2017-08-01] MEDS: Naproxen 550 mg Tab PO SCH ×2 (09:33→17:11)
[2017-08-01 15:19] LABS: BARBITURATES, UR NEGATIVE (NEGATIVE); BENZODIAZEPINES, UR NEGATIVE (NEGATIVE); OPIATES, UR NEGATIVE (NEGATIVE); PHENCYCLIDINE, UR NEGATIVE (NEGATIVE)
--- NOTE | 2017-08-01 20:53 | CARD ---
APPROVED REPORT EXAM: Two-dimensional and M-mode echocardiogram with Doppler and color Doppler. INDICATION Chest Pain 2D DIMENSIONS Left Atrium (2D)4.0 (1.6-4.0cm)IVSd1.4 (0.7-1.1cm) LVDd4.8 (3.9-5.9cm)PWd1.5 (0.7-1.1cm) LVDs3.3 (2.5-4.0cm)FS (%) 31.9 % LVEF (%)60.0 (>50%) M-Mode DIMENSIONS Aortic Root3.70 (2.2-3.7cm)Aortic Cusp Exc.2.30 (1.5-2.0cm) Aortic Valve AoV Peak Wlsnrdgd404.0cm/Delta Peak GR.6mmHg Mitral Valve MV E Iqcmntvn91.5cm/sMV A Hrhtnsij06.8cm/sE/A ratio1.5 TDI Lateral E' Peak V7.99cm/sMedial E' Peak V5.95cm/sE/Lateral E'9.8 E/Medial E'13.2 Pulmonary Valve PV Peak Rzizxmbv39.3cm/sPV Peak Grad.3mmHg Tricuspid Valve TR Peak [id number]/sRAP [id number] Peak Gr.11mmHg [id number] LEFT VENTRICLE The left ventricle is normal size. There is mild to moderate concentric left ventricular hypertrophy. The left ventricular function is normal. The left ventricular ejection fraction is within the normal range. There is normal LV segmental wall motion. The left ventricular diastolic function is normal. RIGHT VENTRICLE The right ventricle is normal size. There is normal right ventricular wall thickness. The right ventricular systolic function is normal. ATRIA The left atrium size is normal. The right atrium size is normal. AORTIC VALVE The aortic valve is normal in structure. No aortic regurgitation is present. MITRAL VALVE The mitral valve is mildly thickened. There is no mitral valve regurgitation noted. There is no mitral valve stenosis. TRICUSPID VALVE The tricuspid valve is normal in structure. There is no tricuspid valve regurgitation noted. GREAT VESSELS The aortic root is normal in size. The IVC is normal in size and collapses >50% with inspiration. <Conclusion> The left ventricle is normal size. There is mild to moderate concentric left ventricular hypertrophy. The left ventricular function is normal. The left ventricular ejection fraction is within the normal range. There is normal LV segmental wall motion.
--- NOTE | 2017-08-01 21:32 | CARD ---
APPROVED REPORT EKG Measurement Heart [id number] <Conclusion> Normal sinus rhythm Prolonged QT Abnormal ECG
--- NOTE | 2017-08-01 21:40 | CARD ---
APPROVED REPORT EKG Measurement Heart [id number] <Conclusion> Normal sinus rhythm Normal ECG
[2017-08-02] MEDS: Albuterol-Ipratrop 3 mg / 0.5 (3 ml) UD IH SCH ×2 (03:11→07:30)
[2017-08-02] MEDS: Pantoprazole 40 mg EC Tab PO SCH (05:35)
[2017-08-02 06:02] VITALS: O2SAT 100
[2017-08-02 06:24] LABS: BASO # 0.01 K/mm3 (0.0-2.0); BASO % 0.2 % (0.0-3.0); EOS # 0.1 (0.0-0.7); EOS % 2.4 % (1.5-5.0); GRAN # 2.65 (1.4-6.5); GRAN % 53.8 % (50.0-68.0); HEMOGLOBIN 10.5 g/dL (12.0-16.0); LYMPH # 1.7 (1.2-3.4); LYMPH % 34.7 % (22.0-35.0); MEAN CELL VOLUME 75.6 fl (80.0-105.0); MEAN CORPUSCULAR HEMOGLOBIN 24.1 pg (25.0-35.0); MEAN CORPUSCULAR HGB CONC 31.9 g/dl (31.0-37.0); MEAN PLATELET VOLUME 10.1 fl (7.0-11.0); MONO # 0.4 (0.1-0.6); MONO % 8.9 % (1.0-6.0); RBC 4.35 10^6/uL (3.5-6.1); WHITE BLOOD COUNT 4.9 10^3/ul (4.5-11.0)
[2017-08-02 06:33] LABS: ALB/GLOB RATIO 1.3 (1.1-1.8); ALBUMIN 4.2 g/dL (3.0-4.8); ALT/SGPT 27 U/L (7-56); AST/SGOT 26 U/L (14-36); BLOOD UREA NITROGEN 9 mg/dL (7-21); CALCIUM 9.4 mg/dL (8.4-10.5); GFR AFRICAN-AMERICAN > 60; GFR NON-AFRICAN AMERICAN > 60
--- NOTE | 2017-08-02 07:40 | CON ---
DATE: CARDIOLOGY CONSULTATION REASON FOR CONSULTATION: Shortness of breath. HISTORY OF PRESENT ILLNESS: The patient is an 26-year-old -[place] female who has a history of hypertension and congestive heart failure. However, she is not taking any medications because of insurance issue. The patient stated she underwent cardiac catheterization at [facility] about 3 years ago and she did not require any coronary intervention at that time. According to the ER team, the patient presented because of chest pain of 10 hours duration, which is radiating to the left shoulder and left arm. SOCIAL HISTORY: The patient is a smoker. MEDICATIONS: Naprosyn 550 mg twice a day, hydralazine 10 mg intravenously every 6 hours p.r.n., aspirin 81 mg once a day, Lipitor 40 mg once a day, Nicoderm patch, Norvasc 10 mg once a day, labetalol 100 mg twice a day, Xanax 0.5 mg twice a day. REVIEW OF SYSTEMS: No fever or chills. No vomiting or diarrhea. PHYSICAL EXAMINATION: GENERAL: The patient is a young middle-aged female who does not appear to be in any distress. VITAL SIGNS: Blood pressure 127/84, heart rate 78, temperature 98.2, respiration 19. HEENT: Normocephalic. CHEST: Clear. HEART: S1 and S2, regular. ABDOMEN: Soft. EXTREMITIES: Trace edema. LABORATORY DATA: Urine drug screen is negative. SMA-7 is within normal limits except for glucose of 115. Three sets of troponin are negative. Total cholesterol is 205. The rest of lipid profile is within normal limit. Hemoglobin and hematocrit 10.8 and 33.8, white count and platelet count are within normal limits. Chest x-ray revealed borderline cardiomegaly, prominent bronchovascular markings. EKG revealed sinus rhythm with prolonged QT interval. ASSESSMENT: 1. Chest pain, myocardial infarction is ruled out. 2. Hypertension. 3. Prolonged QT interval on EKG. The patient has borderline hypokalemia today of 3.6. CONDITIONS: Continue current hydralazine, aspirin, Lipitor, labetalol and Norvasc. Obtain BMP and magnesium level in the a.m. FOLLOWUP: Echo cardiac study that was performed today. Brijesh Hannallah, MD
[2017-08-02] MEDS: Naproxen 550 mg Tab PO SCH (09:12)
[2017-08-02 12:21] VITALS: BP 142/90; PULSE 77; RESP 18; TEMP 98.2
--- NOTE | 2017-08-02 12:24 | CP.PCM.DIS ---
<Suleman Ray - Last Filed: 08/02/17 12:20> Provider - Provider Date of Admission: 07/31/17 22:11 Attending physician: Aurelia Fisher MD Primary care physician: Brant Aparicio MD Consults: Cardio: Dr. Navarro Time Spent in preparation of Discharge (in minutes): 35 Hospital Course - Lab Results Lab Results: Most Recent Lab Values WBC 4.9 10^3/ul (4.5-11.0) 08/02/17 06:00 RBC 4.35 10^6/uL (3.5-6.1) 08/02/17 06:00 Hgb 10.5 g/dL (12.0-16.0) L 08/02/17 06:00 Hct 32.9 % (36.0-48.0) L 08/02/17 06:00 MCV 75.6 fl (80.0-105.0) L 08/02/17 06:00 MCH 24.1 pg (25.0-35.0) L 08/02/17 06:00 MCHC 31.9 g/dl (31.0-37.0) 08/02/17 06:00 RDW 16.0 % (11.5-14.5) H 08/02/17 06:00 Plt Count 319 10^3/uL (120.0-450.0) 08/02/17 06:00 MPV 10.1 fl (7.0-11.0) 08/02/17 06:00 Gran % 53.8 % (50.0-68.0) 08/02/17 06:00 Lymph % (Auto) 34.7 % (22.0-35.0) 08/02/17 06:00 Ferry % (Auto) 8.9 % (1.0-6.0) H 08/02/17 06:00 Eos % (Auto) 2.4 % (1.5-5.0) 08/02/17 06:00 Baso % (Auto) 0.2 % (0.0-3.0) 08/02/17 06:00 Gran # 2.65 (1.4-6.5) 08/02/17 06:00 Lymph # (Auto) 1.7 (1.2-3.4) 08/02/17 06:00 Ferry # (Auto) 0.4 (0.1-0.6) 08/02/17 06:00 Eos # (Auto) 0.1 (0.0-0.7) 08/02/17 06:00 Baso # (Auto) 0.01 K/mm3 (0.0-2.0) 08/02/17 06:00 D-Dimer, Quantitative < 200 ng/mL (0-243) 08/01/17 12:25 Sodium 141 mmol/L (132-148) 08/02/17 06:00 Potassium 4.0 mmol/L (3.6-5.0) 08/02/17 06:00 Chloride 102 mmol/L (98-107) 08/02/17 06:00 Carbon Dioxide 28 mmol/L (21-33) 08/02/17 06:00 Anion Gap 14 (10-20) 08/02/17 06:00 BUN 9 mg/dL (7-21) 08/02/17 06:00 Creatinine 0.7 mg/dl (0.7-1.2) 08/02/17 06:00 Est GFR ( Amer) > 60 08/02/17 06:00 Est GFR (Non-Af Amer) > 60 08/02/17 06:00 Random Glucose 96 mg/dL (70-110) 08/02/17 06:00 Hemoglobin A1c 6.0 % (4.2-6.5) 07/31/17 20:50 Calcium 9.4 mg/dL (8.4-10.5) 08/02/17 06:00 Magnesium 1.9 mg/dL (1.7-2.2) 08/02/17 06:00 Total Bilirubin 0.3 mg/dL (0.2-1.3) 08/02/17 06:00 AST 26 U/L (14-36) 08/02/17 06:00 ALT 27 U/L (7-56) 08/02/17 06:00 Alkaline Phosphatase 45 U/L (38-126) 08/02/17 06:00 Total Creatine Kinase 151 U/L (35-230) 07/31/17 20:50 Troponin I < 0.01 ng/mL 08/01/17 09:00 Total Protein 7.4 g/dL (5.8-8.3) 08/02/17 06:00 Albumin 4.2 g/dL (3.0-4.8) 08/02/17 06:00 Globulin 3.2 gm/dL 08/02/17 06:00 Albumin/Globulin Ratio 1.3 (1.1-1.8) 08/02/17 06:00 Triglycerides 111 mg/dL (35-160) 07/31/17 20:50 Cholesterol 205 mg/dL (130-200) H 07/31/17 20:50 LDL Cholesterol Direct 120 mg/dL (0-129) 07/31/17 20:50 HDL Cholesterol 46 mg/dL (29-60) 07/31/17 20:50 TSH 3rd Generation 1.65 mIU/mL (0.46-4.68) 07/31/17 20:50 Urine Color Yellow (YELLOW) 07/31/17 23:00 Urine Appearance Clear (CLEAR) 07/31/17 23:00 Urine pH 6.0 (4.7-8.0) 07/31/17 23:00 Ur Specific [place] 1.020 (1.005-1.035) 07/31/17 23:00 Urine Protein Negative mg/dL (<30 mg/dL) 07/31/17 23:00 Urine Glucose (UA) Negative mg/dL (NEGATIVE) 07/31/17 23:00 Urine Ketones Negative mg/dL (NEGATIVE) 07/31/17 23:00 Urine Blood Trace-intact (NEGATIVE) H 07/31/17 23:00 Urine Nitrate Negative (NEGATIVE) 07/31/17 23:00 Urine Bilirubin Negative (NEGATIVE) 07/31/17 23:00 Urine Urobilinogen 0.2 E.U./dL (<1 E.U./dL) 07/31/17 23:00 Ur Leukocyte Esterase Negative Mario/uL (NEGATIVE) 07/31/17 23:00 Urine RBC 0 - 2 /hpf (0-2) 07/31/17 23:00 Urine WBC 0 - 2 /hpf (0-6) 07/31/17 23:00 Ur Epithelial Cells 0 - 2 /hpf (0-5) 07/31/17 23:00 Urine HCG, Qual Negative (NEGATIVE) 08/01/17 13:30 Urine Opiates Screen Negative (NEGATIVE) 08/01/17 13:30 Urine Methadone Screen Negative (NEGATIVE) 08/01/17 13:30 Ur Barbiturates Screen Negative (NEGATIVE) 08/01/17 13:30 Ur Phencyclidine Scrn Negative (NEGATIVE) 08/01/17 13:30 Ur Amphetamines Screen Negative (NEGATIVE) 08/01/17 13:30 U Benzodiazepines Scrn Negative (NEGATIVE) 08/01/17 13:30 U Oth Cocaine Metabols Negative (NEGATIVE) 08/01/17 13:30 U Cannabinoids Screen Negative (NEGATIVE) 08/01/17 13:30 - Hospital Course Hospital Course: 26 year old female with PMH HTN, angina, depression, anxiety, COPD, presented for left sided chest pain that started 12 hours prior to presentation on 2017. Patient reported chest pressure sensation associated with left sided arm pain. Patient reported similar symptoms ongoing for a few months prior. Patient was admitted for chest pain rule out ACS. EKG was preformed and showed NSR with ST/T wave abnormalities, negative troponin x3, and echocardiogram that showed normal EF. Cardiology was consulted and evaluated patient to be safe for discharge with outpatient follow up. Patient was educated on smoking cessation. Discharge instructions, planning, and medication reconciliation was discussed with patient. Patient is understandable and agreeable. At time of discharge patient was medically stable for outpatient follow up. - Date & Time of H&P Date of H&P: 08/01/17 Time of H&P: 00:37 Discharge Exam - Head Exam Head Exam: ATRAUMATIC, NORMOCEPHALIC - Eye Exam Eye Exam: EOMI, PERRL - Respiratory Exam Respiratory Exam: Clear to PA & Lateral, NORMAL BREATHING PATTERN. absent: Rales, Rhonchi - Cardiovascular Exam Cardiovascular Exam: REGULAR RHYTHM, +S1, +S2 Additional comments: mild chest wall tenderness to palpation - GI/Abdominal Exam GI & Abdominal Exam: Normal Bowel Sounds, Tenderness. absent: Soft - Extremities Exam Extremities exam: calf tenderness - Neurological Exam Neurological exam: Alert, Normal Gait, Oriented x3 - Psychiatric Exam Psychiatric exam: Flat Affect, Normal Mood - Skin Skin Exam: Dry, Warm Discharge Plan - Follow Up Plan Condition: FAIR Disposition: HOME/ ROUTINE Instructions: Chest Pain (DC), Quitting Smoking Additional Instructions: Take medications as prescribed to you Please follow up with your primary care physician within one to two weeks discharge Please follow up with your piledriver carpenter within one to two weeks upon discharge Stop tobacco use If your symptom worsen or return please go to the nearest ED Referrals: Brant Aparicio MD [Primary Care Provider] - <Aurelia Fisher - Last Filed: 08/02/17 15:11> Provider - Provider Date of Admission: 07/31/17 22:11 Attending physician: Aurelia Fisher MD Primary care physician: Brant Aparicio MD Hospital Course - Lab Results Lab Results: Most Recent Lab Values WBC 4.9 10^3/ul (4.5-11.0) 08/02/17 06:00 RBC 4.35 10^6/uL (3.5-6.1) 08/02/17 06:00 Hgb 10.5 g/dL (12.0-16.0) L 08/02/17 06:00 Hct 32.9 % (36.0-48.0) L 08/02/17 06:00 MCV 75.6 fl (80.0-105.0) L 08/02/17 06:00 MCH 24.1 pg (25.0-35.0) L 08/02/17 06:00 MCHC 31.9 g/dl (31.0-37.0) 08/02/17 06:00 RDW 16.0 % (11.5-14.5) H 08/02/17 06:00 Plt Count 319 10^3/uL (120.0-450.0) 08/02/17 06:00 MPV 10.1 fl (7.0-11.0) 08/02/17 06:00 Gran % 53.8 % (50.0-68.0) 08/02/17 06:00 Lymph % (Auto) 34.7 % (22.0-35.0) 08/02/17 06:00 Ferry % (Auto) 8.9 % (1.0-6.0) H 08/02/17 06:00 Eos % (Auto) 2.4 % (1.5-5.0) 08/02/17 06:00 Baso % (Auto) 0.2 % (0.0-3.0) 08/02/17 06:00 Gran # 2.65 (1.4-6.5) 08/02/17 06:00 Lymph # (Auto) 1.7 (1.2-3.4) 08/02/17 06:00 Ferry # (Auto) 0.4 (0.1-0.6) 08/02/17 06:00 Eos # (Auto) 0.1 (0.0-0.7) 08/02/17 06:00 Baso # (Auto) 0.01 K/mm3 (0.0-2.0) 08/02/17 06:00 D-Dimer, Quantitative < 200 ng/mL (0-243) 08/01/17 12:25 Sodium 141 mmol/L (132-148) 08/02/17 06:00 Potassium 4.0 mmol/L (3.6-5.0) 08/02/17 06:00 Chloride 102 mmol/L (98-107) 08/02/17 06:00 Carbon Dioxide 28 mmol/L (21-33) 08/02/17 06:00 Anion Gap 14 (10-20) 08/02/17 06:00 BUN 9 mg/dL (7-21) 08/02/17 06:00 Creatinine 0.7 mg/dl (0.7-1.2) 08/02/17 06:00 Est GFR ( Amer) > 60 08/02/17 06:00 Est GFR (Non-Af Amer) > 60 08/02/17 06:00 Random Glucose 96 mg/dL (70-110) 08/02/17 06:00 Hemoglobin A1c 6.0 % (4.2-6.5) 07/31/17 20:50 Calcium 9.4 mg/dL (8.4-10.5) 08/02/17 06:00 Magnesium 1.9 mg/dL (1.7-2.2) 08/02/17 06:00 Total Bilirubin 0.3 mg/dL (0.2-1.3) 08/02/17 06:00 AST 26 U/L (14-36) 08/02/17 06:00 ALT 27 U/L (7-56) 08/02/17 06:00 Alkaline Phosphatase 45 U/L (38-126) 08/02/17 06:00 Total Creatine Kinase 151 U/L (35-230) 07/31/17 20:50 Troponin I < 0.01 ng/mL 08/01/17 09:00 Total Protein 7.4 g/dL (5.8-8.3) 08/02/17 06:00 Albumin 4.2 g/dL (3.0-4.8) 08/02/17 06:00 Globulin 3.2 gm/dL 08/02/17 06:00 Albumin/Globulin Ratio 1.3 (1.1-1.8) 08/02/17 06:00 Triglycerides 111 mg/dL (35-160) 07/31/17 20:50 Cholesterol 205 mg/dL (130-200) H 07/31/17 20:50 LDL Cholesterol Direct 120 mg/dL (0-129) 07/31/17 20:50 HDL Cholesterol 46 mg/dL (29-60) 07/31/17 20:50 TSH 3rd Generation 1.65 mIU/mL (0.46-4.68) 07/31/17 20:50 Urine Color Yellow (YELLOW) 07/31/17 23:00 Urine Appearance Clear (CLEAR) 07/31/17 23:00 Urine pH 6.0 (4.7-8.0) 07/31/17 23:00 Ur Specific [place] 1.020 (1.005-1.035) 07/31/17 23:00 Urine Protein Negative mg/dL (<30 mg/dL) 07/31/17 23:00 Urine Glucose (UA) Negative mg/dL (NEGATIVE) 07/31/17 23:00 Urine Ketones Negative mg/dL (NEGATIVE) 07/31/17 23:00 Urine Blood Trace-intact (NEGATIVE) H 07/31/17 23:00 Urine Nitrate Negative (NEGATIVE) 07/31/17 23:00 Urine Bilirubin Negative (NEGATIVE) 07/31/17 23:00 Urine Urobilinogen 0.2 E.U./dL (<1 E.U./dL) 07/31/17 23:00 Ur Leukocyte Esterase Negative Mario/uL (NEGATIVE) 07/31/17 23:00 Urine RBC 0 - 2 /hpf (0-2) 07/31/17 23:00 Urine WBC 0 - 2 /hpf (0-6) 07/31/17 23:00 Ur Epithelial Cells 0 - 2 /hpf (0-5) 07/31/17 23:00 Urine HCG, Qual Negative (NEGATIVE) 08/01/17 13:30 Urine Opiates Screen Negative (NEGATIVE) 08/01/17 13:30 Urine Methadone Screen Negative (NEGATIVE) 08/01/17 13:30 Ur Barbiturates Screen Negative (NEGATIVE) 08/01/17 13:30 Ur Phencyclidine Scrn Negative (NEGATIVE) 08/01/17 13:30 Ur Amphetamines Screen Negative (NEGATIVE) 08/01/17 13:30 U Benzodiazepines Scrn Negative (NEGATIVE) 08/01/17 13:30 U Oth Cocaine Metabols Negative (NEGATIVE) 08/01/17 13:30 U Cannabinoids Screen Negative (NEGATIVE) 08/01/17 13:30 Attending/Attestation - Attestation I have personally seen and examined this patient.: Yes I have fully participated in the care of the patient.: Yes I have reviewed all pertinent clinical information, including history, physical exam and plan: Yes Notes (Text): 08/02/17 15:09 Patient was seen and examined with medical data entry clerk .Agreed with resident assessment and plan. 26 yrs old female with atypical chest pain, EKG is negative for ischemic changes , serial troponins are normal,Echo showed normal systolic function, she recently has [place] [facility] [place]Patient was evaluated by cardiology, no further work needed as per cardiology and was discharged home.Patient is pain free and is ambulatory.She will be discharged home and will follow up with her PCP. Management plan was discussed in detail with patient Education was provided.
--- NOTE | 2017-08-02 21:08 | PN ---
DATE: SUBJECTIVE: The patient's shortness of breath has improved. She denies any chest pain. OBJECTIVE: VITAL SIGNS: Blood pressure 142/90, heart rate 77, temperature 98.2, respirations 18. HEENT: Slightly pale conjunctivae. CHEST: Clear. HEART: S1 and S2 regular. EXTREMITIES: No edema. LABORATORY DATA: Hemoglobin and hematocrit 10.5 and 32.5. White count and platelet count are within normal limits. SMA-7 is within normal limit. Echocardiography study performed yesterday revealed [id number] concentric LVH with normal systolic function and normal segmental motion. ASSESSMENT: 1. Congestive diastolic heart failure. 2. Obesity. 3. Hypertension. RECOMMENDATIONS: Continue current conservative medical management. Brijesh Rolle MD
== END 2017-08-02 13:43 | disposition home or self-care (01) ==
LOC: ED 19:15 → ERH 22:11 → 2RNO 23:29
PROVIDERS: ADMIT Internal Medicine; ATTEND Internal Medicine
DX: R07.89 Other chest pain (principal); I11.0 Hypertensive heart disease with heart failure; I50.30 Unspecified diastolic (congestive) heart failure; E87.6 Hypokalemia; E66.9 Obesity, unspecified; Z68.41 Body mass index [BMI] 40.0-44.9, adult; F17.200 Nicotine dependence, unspecified, uncomplicated; J44.9 Chronic obstructive pulmonary disease, unspecified; Z79.82 Long term (current) use of aspirin; F32.89 Other specified depressive episodes; F41.9 Anxiety disorder, unspecified; Z88.1 Allergy status to other antibiotic agents
CPT/HCPCS: 36415; 71045; 80053; 80061; 81001; 82550; 83036; 83735; 84443; 84484; 84703; 85025; 85378; 93005; 93306; 94640; 94760; 96374; 99283; G0378; G0480; J1885